=== PATIENT | female | born 1990 ===

== ENCOUNTER → 2025-02-19 12:01 | Outpatient (CLI) | payer OTHER, SELFPAY ==
--- NOTE | 2025-02-19 12:04 | DI.US.S_ITS ---
PROCEDURE: US PELVIC COMPLETE INDICATIONS: right sided pelvic pain/history of polyps TECHNIQUE: Real-time scanning was performed of the pelvic organs, with image documentation. Additional endovaginal scanning was necessary due to incomplete visualization of the adnexal and endometrial structures by transabdominal scanning. COMPARISON: None. FINDINGS: Uterus: 9.9 x 4.1 x 4.7 cm. Anteverted positioning. Endometrium measures 3 mm, within normal limits for age. Nabothian cysts are present. Ovaries: Right ovary measures 2 cc. Left ovary measures 2 cc. Right follicular cyst measures 1.6 x 1.5 cm. Other: No pathologic free fluid IMPRESSION: No discrete endometrial lesion identified or pathologic thickening. No acute or significant pelvic abnormality on ultrasound. Dictated by: Brody Prescott M.D. on 02/19/2025 at 13:24 Approved by: Brody Prescott M.D. on 02/25/2025 at 8:24
== END ==
PROVIDERS: PCP Naturopath; Referring Provider Obstetrics & Gynecology; Visit Provider Obstetrics & Gynecology
DX: N92.6 Irregular menstruation, unspecified (principal); N83.01 Follicular cyst of right ovary
CPT/HCPCS: 76830; 76856